=== PATIENT | male | born 1985 | race Caucasian/White ===

== ENCOUNTER 2017-12-16 19:03 | Emergency (ER) | payer SELFPAY ==
[~2017-12-16] VITALS: Ht 172.7 cm; Wt 64.4 kg
[2017-12-16 19:33] VITALS: Ht 172.7 cm; Wt 64.4 kg
[2017-12-16 21:05] VITALS: BP 110/64
== END 2017-12-16 21:05 | disposition home or self-care (01) ==
LOC: ED 19:03
DX: K91.840 Postprocedural hemorrhage of a digestive system organ or structure following a digestive system procedure (principal)